=== PATIENT | male | born 1980 | race Caucasian/White ===

== ENCOUNTER 2018-07-06 08:38 | Outpatient (CLI) | payer BC ==
--- NOTE | 2018-07-06 11:53 | MRI ---
MRI CERVICAL SPINE: Technique: Multiplanar, multisequence imaging of the cervical spine obtained. FINDINGS: Prior anterior fusion procedure noted. Anterior plate and screws are in place at C5-6. Vertebral bodi es maintain height and alignment. Mild loss of disc space at C6-7 with mild degenerative change prese nt. No significant disc bulge or spondylosis seen at C2-3, C3-4 or C4-5. Mild effacement anterior subarac hnoid space at C4-5 without slight spondylosis to the left, minimally effacing the anterior subarachn oid space on the left. However, no cervical canal or foraminal stenosis. C5-6: Fusion procedure. Anterior subarachnoid space is preserved. No evidence of foraminal encroachme nt. C6-7: Posterior disc bulge and spondylosis flatten the thecal sac and mildly efface the anterior suba rachnoid space. No cord impingement. Mild foraminal narrowing due to uncinate hypertrophy. Cord signa l is normal. IMPRESSION: Post-operative changes at C5-6 as described. Mild degenerative disc changes at C4-5 and C6-7 as descr ibed. POS: [facility]
== END 2018-07-06 08:39 | disposition home or self-care (01) ==
LOC: SCSMRI 08:38
PROVIDERS: ATTEND Family Medicine
DX: M54.2 Cervicalgia (principal); M47.892 Other spondylosis, cervical region; Z98.890 Other specified postprocedural states
CPT/HCPCS: 72141

== ENCOUNTER 2019-07-07 15:55 | Outpatient (CLI) | payer BC ==
--- NOTE | 2019-07-07 16:59 | MRI ---
MRI LUMBAR SPINE WITHOUT CONTRAST: 07/07/19 HISTORY: Annular tear of disc. Low back pain since 2013 which has worsened and pain radiates down to the right hip and buttocks. COMPARISON: 02/16/14. The vertebral body heights and marrow signal are maintained. The conus medullaris ends at mid L1 leve l. There is adequate hydration of the intervertebral discs except for L5-S1 disc which demonstrates disc desiccation with mild loss of disc space height. There is a posterior central T2 and STIR signal hyperintensity of the L5-S1 disc consistent with an a nnular tear. The associated disc protrusion is stable. Probable impingement of the bilateral S1 nerve roots within the lateral recesses is again seen. There is minimal bilateral foraminal narrowing at L 5-S1 level. No significant central canal stenosis noted. The remainder of the exam is otherwise unremarkable. IMPRESSION: Stable exam since 02/16/14 with annular tear at L5-S1 level. POS: [facility]
== END 2019-07-07 15:56 | disposition home or self-care (01) ==
LOC: SCSMRI 15:55
PROVIDERS: ATTEND Family Medicine
DX: M51.37 Other intervertebral disc degeneration, lumbosacral region (principal)
CPT/HCPCS: 72148

== ENCOUNTER 2023-01-09 08:06 | Outpatient (CLI) | payer BC | END 2023-01-09 08:07 | disposition home or self-care (01) | LOC: SCSRAD 08:06 | PROVIDERS: ATTEND Family Medicine | DX: M47.812 Spondylosis without myelopathy or radiculopathy, cervical region (principal); Z98.1 Arthrodesis status; Z98.890 Other specified postprocedural states | CPT/HCPCS: 72040 ==